=== PATIENT | female | born 1985 | race American Indian/Alaskan Native ===

== ENCOUNTER 2021-04-12 11:10 | Outpatient (CLI) | payer OTHER | END 2021-04-12 13:26 | disposition home or self-care (01) | LOC: NST 11:10 | PROVIDERS: ATTEND Obstetrics & Gynecology Maternal & Fetal Medicine | DX: Z34.83 Encounter for supervision of other normal pregnancy, third trimester (principal) ==

== ENCOUNTER 2021-05-03 10:00 | Outpatient (CLI) | payer OTHER | END 2021-05-03 11:27 | disposition still patient (30) | LOC: NST 10:00 | PROVIDERS: ATTEND Obstetrics & Gynecology | DX: Z34.83 Encounter for supervision of other normal pregnancy, third trimester (principal) ==